=== PATIENT | female | born 1975 | race Caucasian/White ===

== ENCOUNTER 2020-07-28 17:50 | Observation (INO) ==
[2020-07-28] MEDS ORDERED: 0.9 % Sodium Chloride 1,000 ML IVC ONE (18:32)
[2020-07-28] MEDS ORDERED: methylPREDNISolone 125 MG/2 ML VIAL IVP ONE (18:32)
[2020-07-28 19:06] LABS: VBG HCO3 23 mEq/L (21-27); VBG PCO2 38 mmHg (41-51); VBG PO2 68 mmHg (25-50)
[2020-07-28 19:06] LABS: Basophils # 0.1 K/mcL (0.0-0.2); Basophils % 0.3 %; Eosinophils # 0.1 K/mcL (0.0-0.6); Eosinophils % 0.7 %; Hematocrit 36.9 % (35.3-44.9); Hemoglobin 12.1 g/dL (11.5-15.4); Immature Granulocytes % 0.5 % (0-4); Lymphocytes # 2.7 K/mcL (0.6-4.6); Lymphocytes % 14.1 %; Mean Corpuscular HGB Conc 32.8 g/dL (31.6-35.5); Mean Corpuscular Hemoglobin 30.6 pg (28.0-33.3); Mean Corpuscular Volume 93.2 fL (83.0-100.0); Monocytes # 1.2 K/mcL (0.0-1.3); Monocytes % 6.2 %; Neutrophils # 15.2 K/mcL (1.6-8.9); Platelet Count 301 K/mcL (140-400); Red Blood Count 3.96 M/mcL (3.82-4.97); Red Cell Distribution Width 13.9 % (11.5-14.5); Segmented Neutrophils % 78.2 %; White Blood Count 19.4 K/mcL (4.3-11.1)
[2020-07-28] MEDS ORDERED: Ipratropium/Albuterol Neb 3 ML IH ONE (19:27)
[2020-07-28 19:34] LABS: Alanine Aminotransferase 10 Units/L (7-52); Albumin 3.8 g/dL (3.5-5.7); Albumin/Globulin Ratio 1.3 (1.1-2.2); Alkaline Phosphatase 62 Units/L (34-104); Aspartate Amino Transferase 17 Units/L (13-39); BUN/Creatinine Ratio 13 (6-26); Bilirubin,Indirect 0.3 mg/dL (0.0-1.0); Bilirubin,Total 0.3 mg/dL (0.3-1.0); Blood Urea Nitrogen 10 mg/dL (6-20); Calcium 9.4 mg/dL (8.6-10.3); Carbon Dioxide 22 mEq/L (23-29); Chloride 103 mEq/L (98-107); Glucose 107 mg/dL (70-105); Osmolality,Calculated 280 (280-300); Potassium 3.4 mEq/L (3.5-5.1); Sodium 135 mEq/L (136-145); Total Protein 6.8 g/dL (6.4-8.9); Troponin I < 0.03 ng/mL (< 0.04); eGFR For African Americans > 60 (> 60); eGFR For Non-African Americans > 60 (> 60)
[2020-07-28] MEDS ORDERED: Ketorolac 15 MG/ML VIAL IVP ONE (19:40)
[2020-07-28] MEDS ORDERED: Azithromycin 250 MG TABLET PO ONE (20:30)
[2020-07-28] MEDS ORDERED: cefTRIAXone 1,000 MG in Water for inj. (sterile) 10 ML IVP ONE (21:00)
[2020-07-28] MEDS ORDERED: Naloxone 0.4 MG/ML INJ IVP PRN (21:30)
[2020-07-28] MEDS ORDERED: Furosemide 20 MG TABLET PO PRN (21:31)
[2020-07-28 22:27] LABS: Adenovirus Not Detected (Not Detect); Bordetella Pertussis Not Detected (Not Detect); Chlamydophila pneumoniae Not Detected (Not Detect); Coronavirus 229E Not Detected (Not Detect); Coronavirus HKU1 Not Detected (Not Detect); Coronavirus NL63 Not Detected (Not Detect); Coronavirus OC43 Not Detected (Not Detect); Human Metapneumovirus Not Detected (Not Detect); Human Rhinovirus/Enterovirus Not Detected (Not Detect); Influenza A Subtype 2009 H1 Not Detected (Not Detect); Influenza B Not Detected (Not Detect); Mycoplasma pneumoniae Not Detected (Not Detect); Parainfluenza Virus 1 Not Detected (Not Detect); Parainfluenza Virus 2 Not Detected (Not Detect); Parainfluenza Virus 3 Not Detected (Not Detect); Parainfluenza Virus 4 Not Detected (Not Detect); Respiratory Syncytial Virus Not Detected (Not Detect); SARS-CoV-2 Not Detected (Not Detect)
[2020-07-29] MEDS: Budesonide/Formoterol 160/4.5 1 PUFF INH IH SCH ×3 (00:06→19:52)
[2020-07-29] MEDS: MethylPREDNISolone 40 MG/ML VIAL IVP SCH ×4 (01:27→23:57)
[2020-07-29] MEDS: *HR* LORazepam 0.5 MG TABLET PO PRN (01:28)
[2020-07-29] MEDS: *HR* OxyCODONE/APAP 5/325 TABLET PO PRN ×3 (01:28→21:53)
[2020-07-29] MEDS: *HR* Heparin 5,000 UNIT/ML VIAL SQ SCH ×3 (05:28→21:52)
[2020-07-29] MEDS: Tiotropium 10 INH DOSE IH SCH (08:05)
[2020-07-29] MEDS: Ipratropium/Albuterol Neb 3 ML IH PRN ×3 (08:16→19:52)
[2020-07-29] MEDS: amLODIPine 5 MG TABLET PO SCH (08:21)
[2020-07-29] MEDS: Multivit/Ca/Min/Fe/FA 1 TAB TABLET PO SCH (08:21)
[2020-07-29] MEDS: Azithromycin 500 MG in 0.9 % Sodium Chloride 250 ML IVPB SCH (08:22)
[2020-07-29] MEDS: ARIPiprazole 5 MG TABLET PO SCH (08:22)
[2020-07-29] MEDS: cefTRIAXone 2,000 MG in Water for inj. (sterile) 20 ML IVP SCH (08:22)
[2020-07-29 10:39] LABS: Basophils % 0.1 %; Hematocrit 37.2 % (35.3-44.9); Immature Granulocytes % 0.5 % (0-4); Lymphocytes # 0.9 K/mcL (0.6-4.6); Lymphocytes % 6.3 %; Mean Corpuscular HGB Conc 32.3 g/dL (31.6-35.5); Mean Corpuscular Hemoglobin 30.5 pg (28.0-33.3); Mean Corpuscular Volume 94.7 fL (83.0-100.0); Mean Platelet Volume 9.3 fL (9.4-12.4); Monocytes # 0.1 K/mcL (0.0-1.3); Monocytes % 0.7 %; Neutrophils # 13.7 K/mcL (1.6-8.9); Platelet Count 302 K/mcL (140-400); Red Blood Count 3.93 M/mcL (3.82-4.97); Red Cell Distribution Width 14.1 % (11.5-14.5); Segmented Neutrophils % 92.4 %; White Blood Count 14.9 K/mcL (4.3-11.1)
[2020-07-29 10:53] LABS: BUN/Creatinine Ratio 13 (6-26); Blood Urea Nitrogen 8 mg/dL (6-20); Calcium 9.1 mg/dL (8.6-10.3); Carbon Dioxide 19 mEq/L (23-29); Chloride 105 mEq/L (98-107); Glucose 156 mg/dL (70-105); Osmolality,Calculated 280 (280-300); Potassium 4.2 mEq/L (3.5-5.1); Sodium 134 mEq/L (136-145); eGFR For African Americans > 60 (> 60); eGFR For Non-African Americans > 60 (> 60)
[2020-07-30] MEDS: Ipratropium/Albuterol Neb 3 ML IH PRN (00:23)
[2020-07-30] MEDS: *HR* LORazepam 0.5 MG TABLET PO PRN (02:12)
[2020-07-30] MEDS: Ipratropium/Albuterol Neb 3 ML IH SCH ×2 (04:14→07:47)
[2020-07-30] MEDS: *HR* Heparin 5,000 UNIT/ML VIAL SQ SCH (06:18)
[2020-07-30 07:05] LABS: Hematocrit 37.5 % (35.3-44.9); Hemoglobin 12.1 g/dL (11.5-15.4); Immature Granulocytes % 0.9 % (0-4); Lymphocytes # 0.9 K/mcL (0.6-4.6); Lymphocytes % 4.3 %; Mean Corpuscular HGB Conc 32.3 g/dL (31.6-35.5); Mean Corpuscular Hemoglobin 30.6 pg (28.0-33.3); Mean Corpuscular Volume 94.9 fL (83.0-100.0); Mean Platelet Volume 9.1 fL (9.4-12.4); Monocytes # 0.1 K/mcL (0.0-1.3); Monocytes % 0.7 %; Neutrophils # 19.7 K/mcL (1.6-8.9); Platelet Count 356 K/mcL (140-400); Red Blood Count 3.95 M/mcL (3.82-4.97); Segmented Neutrophils % 94.1 %; White Blood Count 20.9 K/mcL (4.3-11.1)
[2020-07-30 07:27] LABS: BUN/Creatinine Ratio 17 (6-26); Blood Urea Nitrogen 12 mg/dL (6-20); Calcium 9.4 mg/dL (8.6-10.3); Carbon Dioxide 24 mEq/L (23-29); Chloride 106 mEq/L (98-107); Glucose 130 mg/dL (70-105); Osmolality,Calculated 286 (280-300); Potassium 4.1 mEq/L (3.5-5.1); Sodium 137 mEq/L (136-145); eGFR For African Americans > 60 (> 60); eGFR For Non-African Americans > 60 (> 60)
[2020-07-30] MEDS: Budesonide/Formoterol 160/4.5 1 PUFF INH IH SCH (07:47)
[2020-07-30] MEDS: Tiotropium 10 INH DOSE IH SCH (07:47)
[2020-07-30] MEDS: cefTRIAXone 2,000 MG in Water for inj. (sterile) 20 ML IVP SCH (09:23)
[2020-07-30] MEDS: Multivit/Ca/Min/Fe/FA 1 TAB TABLET PO SCH (09:24)
[2020-07-30] MEDS: Azithromycin 500 MG in 0.9 % Sodium Chloride 250 ML IVPB SCH (09:24)
[2020-07-30] MEDS: amLODIPine 5 MG TABLET PO SCH (09:24)
[2020-07-30] MEDS: ARIPiprazole 5 MG TABLET PO SCH (09:24)
[2020-07-30] MEDS: MethylPREDNISolone 40 MG/ML VIAL IVP SCH (09:25)
[2020-07-30] MEDS: *HR* OxyCODONE/APAP 5/325 TABLET PO PRN (09:45)
[2020-07-30 10:42] VITALS: BP 118/73
== END 2020-07-30 11:03 | disposition left against medical advice (07) ==
LOC: EMEROOARM 17:50 → 3ANU 17:50 → SUATTDRO 23:30 → 3ANU 07-29 00:13
PROVIDERS: ADMIT Internal Medicine; ATTEND Family Medicine